=== PATIENT | male | born 1955 | race Caucasian/White ===

== ENCOUNTER → 2016-09-06 07:18 | Outpatient (CLI) | payer MEDICARE, BC ==
[2016-03-29 11:28] VITALS: BMI 28.8
[~2016-09-06 07:18] MED LIST: BAYER CHEWABLE81 MG PO; CALAN SR180 MG PO; COZAAR50 MG PO; FLOMAX0.4 MG PO; HUMALOG 30100 UNITS/ SC; LANTUS INSULIN10 ML SC; MORPHINE SULFAT30 M3 PO; MORPHINE SULFAT30 MG PO; NEURONTIN 300300 MG PO; NEXIUM20 MG PO; PRAVACHOL40 MG PO; PRILOSEC20 MG PO; PROBIOTIC1 EAC1 PO; SYNTHROID50 MCG PO; XANAX0.25 MG PO; ZESTRIL40 MG PO
== END ==
LOC: D.US 07:18
DX: R10.9 Unspecified abdominal pain (principal); R18.8 Other ascites

== ENCOUNTER → 2017-08-02 13:38 | Outpatient (CLI) | payer MEDICARE, BC ==
[2016-03-29 11:28] VITALS: BMI 28.8
== END | disposition home or self-care (01) ==
LOC: D.US 13:38
DX: I65.23 Occlusion and stenosis of bilateral carotid arteries (principal)

== ENCOUNTER → 2018-07-31 09:07 | Outpatient (CLI) | payer MEDICARE, BC ==
[2016-03-29 11:28] VITALS: BMI 28.8
== END | disposition home or self-care (01) ==
LOC: D.US 09:07
PROVIDERS: ATTEND Internal Medicine Cardiovascular Disease
DX: I65.23 Occlusion and stenosis of bilateral carotid arteries (principal)

== ENCOUNTER → 2018-09-22 07:39 | Outpatient (CLI) | payer MEDICARE, BC ==
[2016-03-29 11:28] VITALS: BMI 28.8
--- NOTE | ~2018-09-22 | EC ---
PATIENT:MACEY LYLE SR DATE OF SERVICE: 09/22/18 SEX: M MEDICAL RECORD: [id number] DATE OF : 55 [facility]GE [facility] PAT[facility]: 62 ADMISSION DATE: 09/22/18 REFERRING PHYSICIAN: INTERPRETING PHYSICIAN: SASKIA MORAN MD ECHOCARDIOGRAM REPORT ECHO CHARGES 4 ECHO COMPLETE Date: 09/22/18 CLINICAL DIAGNOSIS: PALPITATIONS/PERDUE H/O HTN/PACEMAKER PLACEMENT ECHOCARDIOGRAPHIC MEASUREMENTS (adult normal given) AC root (d.<3.7cm) 3.1 cm LV Septum d (<1.2 cm> 1.2 cm Valve Excursion 2.1 cm LV Septum (systole) 1.7 cm Left Atria (s.<4.0cm> 4.2 cm LVPW d(<1.2cm) 1.2 cm RV (d.<2.3cm) 2.9 cm LVPW (sytole) 1.7 cm LV diastole(<5.6CM) 5.5 cm MV E-F(>70mm/sec) cm LV systole 3.1 cm LVOT Diameter 1.7 cm MV exc.(>10mm) cm Est.ejection fraction (50-75%) % DOPPLER: LVIT cm/sec A 112 cm/sec E 78.0 cm/sec LA cm/sec RVSP 27.0 mmHg LVOT 123 cm/sec AOP1/2T m/s Asc. Ao 140 cm/sec RVOT 69.0 cm/sec RA cm/sec PA 91.0 cm/sec AV Gradient Peak 7.9 mmHg AV Mean 3.8 mmHg AV Area 2.2 cm MV Gradient Peak 4.5 mmHg MV Mean 1.7 mmHg MV Area cm COMMENTS: OP - HC Salon Designer: 1 [place] X Ray Equipment Tester: 3 Dr. Hobson TAPE# PACS Pericardial Effusion N DATE OF SERVICE: 09/22/2018 Adequate 2-D echo, color-flow and spectral Doppler, and M-mode. Borderline LVH. LV internal dimensions are normal. Wall motion is normal. EF is 55%. Aortic valve is tricuspid. No evidence of stenosis by Doppler interrogation. Left atrium is mildly dilated at 4.2 cm. Mitral valve shows no prolapse. Trace MR. Right-sided chambers are grossly normal. Trace TR. TRANSINT:[id number] Voice Confirmation ID: [id number] DOCUMENT ID: [id number] ECHOCARDIOGRAM REPORT [id number] MACEY LYLE SR SASKIA MORAN MD CC: [id number] DICTATION DATE: 09/23/18 1201 FRUIT DUMPER: 09/23/18 1239 DEP CLI 09/22/18 [place] [id number] [place] [id number]
== END | disposition home or self-care (01) ==
LOC: D.HCCARDIO 07:39
PROVIDERS: ATTEND Internal Medicine Interventional Cardiology
DX: I10 Essential (primary) hypertension (principal)

== ENCOUNTER → 2019-08-11 11:30 | Outpatient (CLI) | payer MEDICARE, BC ==
[2016-03-29 11:28] VITALS: BMI 28.8
== END | disposition home or self-care (01) ==
LOC: D.US 11:30
PROVIDERS: ATTEND Internal Medicine Cardiovascular Disease
DX: I65.23 Occlusion and stenosis of bilateral carotid arteries (principal)

== ENCOUNTER → 2019-09-29 08:49 | Outpatient (CLI) | payer MEDICARE, BC ==
[2016-03-29 11:28] VITALS: BMI 28.8
--- NOTE | 2019-10-01 08:04 | EC ---
PATIENT:MACEY LYLE SR DATE OF SERVICE: 09/29/19 SEX: M MEDICAL RECORD: [id number] DATE OF : 55 LOCATION:[facility] AGE OF PATIENT: 63 ADMISSION DATE: 09/29/19 REFERRING PHYSICIAN: INTERPRETING PHYSICIAN: SASKIA MORAN MD ECHOCARDIOGRAM REPORT ECHO CHARGES 4 ECHO COMPLETE Date: 09/29/19 CLINICAL DIAGNOSIS: HX OF HTN/PACEMAKER ECHOCARDIOGRAPHIC MEASUREMENTS (adult normal given) AC root (d.<3.7cm) 3.5 cm LV Septum d (<1.2 cm> 1.4 cm Valve Excursion 1.5 cm LV Septum (systole) 1.6 cm Left Atria (s.<4.0cm> 3.4 cm LVPW d(<1.2cm) 1.4 cm RV (d.<2.3cm) 3.0 cm LVPW (sytole) 1.8 cm LV diastole(<5.6CM) 4.5 cm MV E-F(>70mm/sec) cm LV systole 2.4 cm LVOT Diameter 1.9 cm MV exc.(>10mm) 1.5 cm Est.ejection fraction (50-75%) % DOPPLER: LVIT cm/sec A 970 cm/sec E 90.0 cm/sec LA cm/sec RVSP 16 mmHg LVOT 105 cm/sec AOP1/2T m/s Asc. Ao 138 cm/sec RVOT 84 cm/sec RA cm/sec PA 105 cm/sec AV Gradient Peak 7.57 mmHg AV Mean 4.07 mmHg AV Area 2.5 cm MV Gradient Peak 4.42 mmHg MV Mean 1.60 mmHg MV Area cm COMMENTS: [place] Strip Gauger: 2 [employer] MER[employer] Hog Operator: 3 Dr. Hobson TAPE# PACS Pericardial Effusion N DATE OF SERVICE: Adequate 2D, color flow imaging, spectral Doppler, and M-Mode. LVH is present. LV internal dimension is normal. Wall motion is normal. EF greater than or equal to 55%. Aortic valve is tricuspid. No evidence of stenosis by Doppler interrogation. Left atrium normal at 3.4 cm. Mitral valve shows no prolapse. Trace MR. Right-sided chambers are grossly normal. Mild TR. Incidental note was made of pacemaker lead in the RV apex. ECHOCARDIOGRAM REPORT [id number] MACEY LYLE SR TRANSINT:[id number] Voice Confirmation ID: [id number] DOCUMENT ID: [id number] SASKIA MORAN MD at 0804 CC: [id number] DICTATION DATE: 09/29/191637 CUSTOM SKI MAKER: 09/30/19 0238 DEP CLI 09/29/19 [place] [id number] [place] [id number]
== END | disposition home or self-care (01) ==
LOC: D.HCCECHO 08:49
PROVIDERS: ATTEND Internal Medicine Interventional Cardiology
DX: I10 Essential (primary) hypertension (principal)

== ENCOUNTER → 2020-10-03 10:32 | Outpatient (CLI) | payer MEDICARE, BC ==
[2016-03-29 11:28] VITALS: BMI 28.8
== END | disposition home or self-care (01) ==
LOC: D.US 10:30
PROVIDERS: ATTEND Internal Medicine Interventional Cardiology
DX: I65.21 Occlusion and stenosis of right carotid artery (principal)